=== PATIENT | female | born 1990 | race Caucasian/White ===

== ENCOUNTER 2018-06-04 08:15 | Emergency (ER) | payer SELFPAY ==
[~2018-06-04] VITALS: Ht 165.1 cm; Wt 58.1 kg
--- NOTE | 2018-06-04 08:52 | NUR ---
Pt to 23 from lobby
[2018-06-04 08:58] LABS: CULTURE INDICATED? YES; HCG UR SG 1.025 (1.003-1.030); MICROSCOPIC INDICATED
[2018-06-04] MEDS ORDERED: ACYC-113 PO (09:09)
--- NOTE | 2018-06-04 09:41 | NUR ---
PELVIC EXAM COMPLETED
[2018-06-04] MEDS ORDERED: IBUPROFEN 600 MG TABLET ONE (09:51)
[2018-06-04] MEDS ORDERED: IBUPROFEN 600 MG TABLET PO ONE (10:00)
[2018-06-04 10:08] LABS: CLUE CELLS NONE SEEN (NONE SEEN); WET PREP WBCS MODERATE (FEW)
[2018-06-04 10:11] VITALS: BP 117/73
== END 2018-06-04 10:44 | disposition home or self-care (01) ==
LOC: ED 10:03
DX: N30.00 Acute cystitis without hematuria (principal)
CPT/HCPCS: 81001; 81025; 87077; 87086; 87186; 87210; 87491; 87591; 87808; 99283

== ENCOUNTER 2018-07-03 14:04 | Inpatient (IN) | payer SELFPAY ==
[~2018-07-03] VITALS: Ht 162.6 cm; Wt 57.9 kg
[~2018-07-03 14:04] MED LIST: ACYC-113 PO
--- NOTE | 2018-07-03 14:36 | NUR ---
Pt presents to ED on roccomendation of therapist for SI. Pt states she is bipolar and does not take medications. Pt states multiple stressors in the last month including of grandmother, anniversary of brother's , breakup. Pt states she has had SI many times before but has never been hospitalized and no SAs. Pt calm and cooperative. Sitter outside of room, all belonings removed.
[2018-07-03 14:46] LABS: BASOPHILS # (AUTO) 0.05 x10^3/uL (0-0.1); BASOPHILS % (AUTO) 1 % (0-1); EOSINOPHILS # (AUTO) 0.02 x10^3/uL (0-0.4); EOSINOPHILS % (AUTO) 0 % (1-7); LYMPHOCYTES # (AUTO) 1.74 x10^3/uL (1-3.4); LYMPHOCYTES % (AUTO) 27 % (22-44); MD NO; MEAN CORPUSCULAR HGB CONC 34.5 g/dL (32.4-35.8); MEAN CORPUSCULAR VOLUME 95.6 fL (80-100); MEAN PLATELET VOLUME 7.2 fL (7.4-10.4); MONOCYTES % (AUTO) 6 % (2-9); NEUTROPHILS # (AUTO) 4.22 x10^3/uL (1.8-6.8); NEUTROPHILS % (AUTO) 66 % (42-75); PLATELET COUNT 331 x10^3/uL (130-400); RED BLOOD COUNT 4.67 x10^6/uL (3.82-5.3); RED CELL DISTRIBUTION WIDTH 12.8 % (9.6-15.2)
[2018-07-03 14:56] LABS: ALBUMIN 4.2 g/dL (3.4-5.0); ANION GAP 4 mmol/L (5-15); CALCIUM 8.9 mg/dL (8.5-10.1); CHLORIDE 108 mmol/L (98-107)
[2018-07-03 14:59] LABS: ALANINE AMINOTRANSFERASE 20 U/L (12-78); ALKALINE PHOSPHATASE 40 U/L (45-117); BILIRUBIN,TOTAL 0.6 mg/dL (0.2-1.0); TOTAL PROTEIN 7.7 g/dL (6.4-8.2)
--- NOTE | 2018-07-03 15:05 | NUR ---
PT. HAS A SITTER OUTSIDE OF HER ROOM. PA CARRY MADE THE PT. A L2K. PT. WAS GIVEN WATER AND IS AWARE THAT URINE IS NEEDED. UA COLLECTED.
[2018-07-03 15:07] LABS: SALICYLATE LEVEL < 1.7 mg/dL (2.8-20.0)
[2018-07-03 15:08] LABS: ACETAMINOPHEN < 2 mcg/mL (10-30)
[2018-07-03 15:27] LABS: HCG UR SG 1.023 (1.003-1.030)
[2018-07-03 15:39] LABS: AMPHETAMINE SCREEN, URINE Negative (Negative); BARBITURATE SCREEN, URINE Negative (Negative); BENZODIAZEPINE SCREEN, URINE Negative (Negative); CANNABINOID SCREEN, URINE Negative (Negative); COCAINE SCREEN, URINE Negative (Negative); METHADONE SCREEN, URINE Negative (Negative); OPIATE SCREEN, URINE Negative (Negative)
--- NOTE | 2018-07-03 16:00 | NUR ---
Pt moved to safe room. sitter remains outside room. Pt NAD at this time.
[2018-07-03] MEDS ORDERED: hydrALAzine 20 MG/ML, 1ML IVPush PRN (17:30)
[2018-07-03] MEDS ORDERED: POLYETHYLENE GLYCOL 17 GM PACKET PO PRN (17:30)
[2018-07-03] MEDS ORDERED: ACETAMINOPHEN 325 MG TABLET PO PRN (17:30)
[2018-07-03] MEDS ORDERED: BISACODYL 10 MG SUPP PR PRN (17:30)
[2018-07-03] MEDS ORDERED: ONDANSETRON ODT 4 MG PO PRN (17:30)
[2018-07-03 18:02] LABS: FREE T4 (FREE THYROXINE) 1.03 ng/dL (0.76-1.46); THYROID STIMULATING HORMONE 1.28 mIU/L (0.358-3.740)
--- NOTE | 2018-07-03 18:31 | NUR ---
Pt resting in bed. NAD. Sitter outside room.
[2018-07-03 19:08] VITALS: BP 131/92
[2018-07-03 19:20] VITALS: BP 142/87
[2018-07-03 21:45] VITALS: BP 131/92
[2018-07-03] MEDS: ZOLPIDEM 5MG TABLET PO PRN (22:16)
[2018-07-04 06:03] LABS: BASOPHILS # (AUTO) 0.04 x10^3/uL (0-0.1); BASOPHILS % (AUTO) 1 % (0-1); EOSINOPHILS % (AUTO) 2 % (1-7); LYMPHOCYTES # (AUTO) 2.59 x10^3/uL (1-3.4); LYMPHOCYTES % (AUTO) 48 % (22-44); MD NO; MEAN CORPUSCULAR HGB CONC 34.5 g/dL (32.4-35.8); MEAN CORPUSCULAR VOLUME 95.9 fL (80-100); MEAN PLATELET VOLUME 7.2 fL (7.4-10.4); MONOCYTES % (AUTO) 9 % (2-9); NEUTROPHILS # (AUTO) 2.21 x10^3/uL (1.8-6.8); NEUTROPHILS % (AUTO) 41 % (42-75); PLATELET COUNT 319 x10^3/uL (130-400); RED BLOOD COUNT 4.48 x10^6/uL (3.82-5.3); RED CELL DISTRIBUTION WIDTH 12.5 % (9.6-15.2)
[2018-07-04 06:14] LABS: ANION GAP 7 mmol/L (5-15); CALCIUM 8.9 mg/dL (8.5-10.1); CHLORIDE 106 mmol/L (98-107)
[2018-07-04 06:15] LABS: CREATININE 1.02 mg/dL (0.55-1.02)
[2018-07-04 07:24] VITALS: BP 119/73
[2018-07-04] MEDS: [UNRECOGNIZED DRUG - OTHER] HOMEMEDPO SCH (09:00)
[2018-07-04] MEDS: CITALOPRAM 20 MG TABLET PO SCH (09:20)
[2018-07-04] MEDS: ACYCLOVIR 400 MG TABLET PO SCH ×2 (09:23→21:54)
[2018-07-04 20:00] VITALS: BP 116/76
[2018-07-04] MEDS: ZOLPIDEM 5MG TABLET PO PRN ×2 (21:54→22:43)
[2018-07-05 08:00] VITALS: BP 116/77
[2018-07-05] MEDS: CITALOPRAM 20 MG TABLET PO SCH (08:23)
[2018-07-05] MEDS: ACYCLOVIR 400 MG TABLET PO SCH (08:23)
[2018-07-05] MEDS: [UNRECOGNIZED DRUG - OTHER] HOMEMEDPO SCH (08:25)
== END 2018-07-05 16:50 | disposition home or self-care (01) | DRG 885 ==
LOC: ED 16:13 → EDIP 16:14 → ED 16:25 → 2N 18:56
PROVIDERS: ADMIT Internal Medicine; ATTEND Internal Medicine
DX: F31.9 Bipolar disorder, unspecified (principal); R45.851 Suicidal ideations; F32.9 Major depressive disorder, single episode, unspecified; M79.7 Fibromyalgia; A60.00 Herpesviral infection of urogenital system, unspecified; R44.1 Visual hallucinations; Z90.49 Acquired absence of other specified parts of digestive tract
CPT/HCPCS: 36415; 80048; 80053; 80307; 80329; 81025; 84439; 84443; 85025; G0378; G0480